=== PATIENT | male | born 1990 | race African-American/Black ===

== ENCOUNTER 2025-03-01 13:58 | Outpatient (REF) | payer OTHER, SELFPAY ==
--- NOTE | ~2025-03-01 | XR_ITS ---
CLINICAL HISTORY: M54.16 - Radiculopathy, lumbar region --- Additional Notes or Special Instructions: AP LAT FLEX EX 4 views lumbar spine Comparison: None Findings: Normal alignment. No acute fractures or dislocation. No significant degenerative change. IMPRESSION: No acute findings. This document has been electronically signed by: Alen Leonard MD on 03/03/2025 09:02:51
== END 2025-03-01 13:59 | disposition home or self-care (01) ==
LOC: HO.HOSX 13:58
PROVIDERS: Visit Provider Physician Assistant
DX: M54.16 Radiculopathy, lumbar region (principal)
CPT/HCPCS: 72110

== ENCOUNTER 2025-03-01 13:58 | Outpatient (AMB) | payer OTHER, SELFPAY ==
--- NOTE | 2025-03-01 14:01 | A.SPINEOV_ITS ---
Vital Signs 03/01/25 14:05 Height 6 ft 5 in Weight 265 lb BMI 31.4 Intake Visit Reasons: LBP/bilateral leg pain Intake Note: Mr. Craven is here today c/o Low back pain that radiates down to the legs. Steel Plate Printer Required: No Allergies No Known Allergies Allergy (Verified 03/01/25 14:06) Physical Exam Vital Signs: BMI result Body Mass Index 31.4 Assessment & Plan Assessment & Plan (1) Lumbar radiculopathy: Code(s): M54.16 - Radiculopathy, lumbar region Category: Medical Plan Triston is a pleasant 34-year-old male who comes in today as a self-referral for a low back pain and shooting pain into his bilateral lower extremities. He reports that this has been ongoing since about , and began again with no inciting incident. He states that he has experienced this exact pain before. About 9 years ago he underwent L4-5, L5-S1 lumbar decompression completed by Dr. Martinez at [facility] to address this exact pain. Fortunately, his pain was completely relieved after surgery, and until of 2024 he did not experience any return of pain. Unfortunately, since he has had severe exacerbation of this pain. When describing his pain he says his low back is just as bad as the shooting pain into his legs, and rates it as an 8/10 constant. The only way he is able to help mitigate his pain is if he lays flat on the ground, which provides good symptom relief. In any other position he has pain. His pain has significantly exacerbated when attempting to stand from a seated position. He reports no significant change in his pain level when ambulating. He reports some tingling associated with the pain into his bilateral lower extremities, but denies numbness or burning. When describing the pain that shoots down his leg he states that it feels like it goes down his entire leg on both sides. He was unable to pinpoint a dermatomal distribution in which his pain travels. He does state that it terminates around the bilateral ankles. He has attempted physical therapy since , and also had injections at L4-5, L5-S1 about 3 weeks ago and reports no symptom relief from the injections. He has attempted shet-gfo-uylorer medications including Tylenol, ibuprofen, and pain gel/creams. He also has attempted several different prescription medications including a course of prednisone, gabapentin, and cyclobenzaprine. PMH: L4-5, L5-S1 lumbar decompression completed in 2016. He denies any other past medical history or surgical history. Social hx: The patient does not smoke, reports no substance use. Medications: None currently. Allergies: NKDA. Physical exam: Amber has 5/5 strength in his upper and lower extremities. He ambulates well with a nonantalgic non spastic gait. He is able to get up onto the exam table without much issue. He has no significant sensational deficits on exam. His reflexes are 1+ hypoactive in the bilateral patella, but are 2+ intact elsewhere. (-) bilateral straight leg raise, (-) Kumar's, (-) clonus. Imaging review: MRI of the lumbar spine completed at [facility] in January of 2025 shows moderate-severe bilateral foraminal stenosis at L4-5, L5-S1 (worse at L5-S1). There is notable posterior disc bulge at both of these levels. Fairly significant endplate degeneration at S1 with Modic endplate changes, although the MRI imaging is rather difficult to interpret due to poor quality of the study. Impression: Triston is a pleasant 34-year-old male who comes in today with a chief complaint of low back pain and shooting pains into his bilateral lower extremities. He describes his pain as the exact same pain he had prior to his lumbar decompression surgery about 9 years ago. He did attempt to go and see the neurosurgeon who did his previous surgery, however he is booked for about 3 months out and wanted to have a opinion before then as he has in quite excruciating pain at this time. He most recently attempted a series of injections with Dr. Piedra at [facility], but reports no relief from these injections. He has exhausted all other reasonable conservative options at this time. It seems he could be a candidate for either lumbar decompression or lumbar fusion, but I will be more inclined to say lumbar fusion would be more appropriate given the significant endplate degeneration seen at S1. I would like to send the patient for a set of dynamic lumbar spine x-rays, and review this case with Dr. Pierson. I will call him with a surgical decision next week after reviewing his case and imaging. Thank you for allowing us to care for your patient. The total time spent with this visit with this patient was 45 minutes reviewing history, physical exam, MRI imaging review, and implementation of treatment plan or further diagnostic testing Kel Pierson MD,PhD [facility] Orders: Orders XR lumbar spine 4V min Today M54.16 - Radiculopathy, lumbar region Coding Level of Care Code New Pt Level 4 (94575) Diagnoses Lumbar radiculopathy M54.16
[2025-03-01 14:05] VITALS: BMI 31.4
--- OUTSIDE RECORDS SUMMARY | 2025-03-01 15:12 | XMS_ITS ---
Author Organization [facility] Address [address] [place] [id number] Care Team Providers Care Mud Plant Operator Name Role Phone NONE, NONE Primary Care Provider Santiago Rodriguez Unavailable [phone] REASON FOR VISIT sec. opinion-lower back Encounters Encounter Location Date Provider Diagnosis [facility] [address] [place] [phone] 02/22/2025 Santiago Rodriguez Plan Of Treatment Next Appt Details Provider Name:Santiago wylie, 03/13/2025 02:20:00 PM, [address], [address], [place], [phone], Progress Notes * Triston MIX DDOB:1990 (34 yo M)Acc No.[id number]:02/22/2025 Patient:?Triston MIX :1990???Age:34 Y???Sex:Male Address:[address] [place], [address] * * Date:?
--- OUTSIDE RECORDS SUMMARY | 2025-03-01 15:12 | XMS_ITS | Clinical Summary ---
Author Organization [facility] Address [address] [place] [address] Care Team Providers Care Legal Paraprofessional Name Role Phone Morris Lombardo DO Primary Care Provider [phone] Social History Tobacco Use Types Packs/Day Years Used Date Smoking Tobacco: Never Assessed Sex and Gender Information Value Date Recorded Sex Assigned at Male 02/15/2025 10:00 AM EDT Legal Sex Male 10:46 AM EDT Gender Identity Male 02/15/2025 10:00 AM EDT Sexual Orientation Not on file Plan of Treatment Upcoming Encounters Date Type Department Care Team (Late st Contact Info) Description 03/13/2025 8:00 AM EDT Office Visit [facility] [address] [place] [address] Aura Bergman, GRINDER TENDER [address] [place] [address] In Person with Nurse Practitioner Health Maintenance Due Date Last Done Comments Blood Pressure 1992 Depression Screening 1996 Hepatitis C Screening 2010 DTaP,Tdap,and Td Vaccines (1 - Tdap) 2011 COVID-19 Vaccine (2023-2 5 season) 2024 Influenza Vaccine (Season Ended) 2025 Meningococcal Vaccines Aged Out No lo nger eligible based on patient's age to complete this topic Pneumococcal Vaccine: Pediat rics (0 to 5 Years) and At-Risk Patients (6 to 64 Years) Aged Out No longer eligible b ased on patient's age to complete this topic Procedures Procedure Name Priority Date/Time Associated Diagnosis Comments MRI LUMBAR SPINE OUTSIDE STUDY 02/04/2025 3:54 PM EDT from Last 3 Months Results * MRI Lumbar Spine Outside Study (02/04/2025 3:54 PM EDT) Anatomical Region Laterality Modality Magnetic Resonan ce 02/07/2025 10:5 3 AM EDT Narrative 02/07/2025 10:53 AM EDT This is a non-reportable study used for image storage. It has been automatically finalized and does not contain a result. Procedure Note System, Provider Not In - 02/07/2025 This is a non-reportable study used for image storage. It has beenautomatically finalized and does not contain a result. us Provider Not In System IMG MRI ORDERABLES Final Result from Last 3 Months Insurance ([place]) [address] [place] [address] [facility] ([place]) 5 [facility] [place] [place] [address] [facility] Care Teams Legal Paraprofessional Relationship Specialty Start Date End Date Morris Lombardo DO [address] [facility] [place] [address] PCP - General Hospitalist 02/15/25
--- OUTSIDE RECORDS SUMMARY | 2025-03-01 15:12 | XMS_ITS | Patient Health Record ---
Author Organization [facility] Address [address] [place] [phone] Care Team Providers Care Switchbox Assembler Name Role Phone NONE, NONE Primary Care Provider Santiago Rodriguez Unavailable [phone] Reason For Referral No Information Encounters Encounter Location Date Provider Diagnosis [facility] [address] [place] [phone] 02/22/2025 Santiago Rodriguez Plan Of Treatment Next Appt Details Provider Name:Santiago wylie, 03/13/2025 02:20:00 PM, [address], [place], [phone], Insurance Providers Payer Name Payer Address Payer Phone Subscriber Number Group Number Insured Name Patient Relationship to Insured Coverage Start Date Coverage End Date [employer] [address] [address] [place] [address] [id number] Triston Craven Self - patient is the insured
== END 2025-03-01 14:31 | disposition home or self-care (01) ==
LOC: HO.HNS 13:59
PROVIDERS: Visit Provider Physician Assistant
DX: M54.16 Radiculopathy, lumbar region (principal)
CPT/HCPCS: 99204

== ENCOUNTER → 2025-03-01 14:35 | Outpatient (BNV) | payer OTHER, SELFPAY | PROVIDERS: Visit Provider Specialist | DX: M54.16 Radiculopathy, lumbar region (principal) | CPT/HCPCS: 72110 ==

== ENCOUNTER 2025-06-14 15:15 | Outpatient (AMB) | payer OTHER, SELFPAY ==
--- OUTSIDE RECORDS SUMMARY | 2025-03-31 11:30 | XMS_ITS ---
Author Organization [facility] Address [address] [place] [phone] Care Team Providers Care Horticulture/Floriculture Teacher Name Role Phone NONE, NONE Primary Care Provider Santiago Rodriguez Unavailable [phone] REASON FOR VISIT Sec. Op.-Patient has been seen at [facility]. Has had surgery 8-9 yrs ago- bulging disc (L4,L5,S1) /pinched nerve. MRI done at [facility] 02/06/25. Cortisone injection-last one was 2 weeks ago-no relief. search marketing specialist told him he will need a fusion done. He wants to know if this is the surgery that he needs., Low back pain, radiating (DOO: years 2011/2015?) Encounters Encounter Location Date Provider Diagnosis [facility] [address] [place] [phone] 03/31/2025 Santiago Rodriguez Plan Of Treatment No Information Procedure Notes * Category Sub-Category Detail Notes Physical Therapy Rx Modalities PRN Dx specific core strengthening Frequency 1-2 x week for 6-8 w eeks Duration 6-8 weeks Goals decrease inflammatio n, increase ROM, increase strength, proprioception training, Improve core strength Evaluate & Treat as directed by theralice madera Diagnosis Low back pain Timeframe at patient's conveni ence Progress Notes * Triston MIX DDOB:1990 (35 yo M)Acc No.[id number]:03/31/2025 New Patient Evaluation Patient: Triston LAWTON Henry Provider: ANN Hansen :1990 A ge:34 Y S ex:Male Date:03/31/2025 Address:[address], [id number] Subjective: * Chief Complaints: * 1 . Sec. Op.-Patient has been seen at [facility]. Has had surgery 8-9 yrs ago- bulging disc (L4,L5,S1) /pinched nerve. MRI done at [facility] 02/06/25. Cortisone injection-last one was 2 weeks ago-no relief. search marketing specialist told him he will need a fusion done. He wants to know if this is the surgery that he needs.. 2. Low back pain, radiating (DOO: years ?). * HPI: G eneral: Triston is a 34yo male who presents for second opinion of low back pain that has been ongoing for years. He complains of low back pain radiating down bilateral legs to bilateral ankles. He was recently seen at [facility]. A lumbar MRI was performed on 02/04/25. He has tried physical therapy, gabapentin, muscle relaxants, Nsaids, Tylenol and had lumbar injection performed at on 02/20/25?. His pain has continued. He was seen by [facility] on 03/13/25. Bilateral LE EMG's were ordered at that time. He was also prescribed Diclofenac and referred to Dr. Piedra (?) to discuss other possible treatment options. He was seen at [facility] back to 2016 for low back issues. * ROS: A bridged Review of Systems: Fever n o. C hills n o. H eadache n o. W eight loss n o. H earing loss n o. N osebleed n o. N ight cramps n o.?Vision changes n o. S hortness of breath n o. C ough n o. C hest pain?no. P alpitations n o. H eartburn n o. B ronchial asthma n o. A bdominal pain n o. R albert/hives n o. M jacinto loss n o. S eizures n o. R ecurrent UTI n o. H ematuria n o. D epression n o. N umbness n o. T ingling n o. h /o DVT n o. S troke/TIA n o. S leep apnea n o. ? * Medical History: * Surgical History: H dex-Laminectomy, L4-L5 . Objective: * Vitals: * Examination: I maging Studies: MRI: S daisha (Dion)-Lumbar MRI 02/04/25:Question diffuse bone marrow recruitment should be correlated with symptoms. L5-S1 mixed endplate irregularity and bone marrow changes can be associated with focal pain should be correlated clinically. No disc herniations, central or neuroforaminal stenosis *Neuro interpretation-MRI of the lumbar spine demonstrates a prior hemilaminectomy at L4 and L5 as well as degenerative disc disease at L4-5 and L5-S1. There is no significant canal stenosis or foraminal stenosis present. There is no subluxation present.. Assessment: Plan: * Treatment: * Procedures: P hysical Therapy Rx: Diagnosis L ow back pain. T imeframe a t patient's convenience. E valuate & Treat a s directed by therapist. Alejandro Bowles RN. D x specific c ore strengthening. F requency 1 -2 x week for 6-8 weeks. D uration 6-8 weeks. G oals d ecrease inflammation, increase ROM, increase strength, proprioception training, Improve core strength. * * Electronic signature of Marii Rodriguez PA-C on 06/14/2025 at 03:18 PM EDT Sign off status: Pending * Provider: ANN Hansen Date: 0 03/31/2025 Generated for Sawyeri jose/Annia/eTranparrishitting on: 0 06/14/2025 03:18 PM EDT History and Physical Notes * Examination Category Sub-Category Detail Notes Category Not es Imaging Studies MRI: Martin (Dion )-Lumbar MRI 02/04/25: Question diffuse bone marrow recruitment should be correlated with symptoms. L5-S1 mixed endplate irregularity and bone marrow changes can be associated with focal pain should be correlated clinically. No disc herniations, central or neuroforaminal stenosis *Neuro interpretation-MRI of the lumbar spine demonstrates a prior hemilaminectomy at L4 and L5 as well as degenerative disc disease at L4-5 and L5-S1. There is no significant canal stenosis or foraminal stenosis present. There is no subluxation present.
--- OUTSIDE RECORDS SUMMARY | 2025-06-14 15:18 | XMS_ITS | Encounter Summary ---
Author Organization [facility] Address [address] [place] [address] Phone Care Team Providers Care Cardroom Drawing Runner Name Role Phone Haley Steen MD, MPH Primary Care Provider [phone] Haley Steen MD, MPH Unavailable [phone] Annabelle Dc MD Unavailable [phone] Cherelle Momin MD Primary Care Provider Encounter Details Date Type Department Care Team (Late st Contact Info) Description 01/21/2016 Orders Only Orthopaedic Surgery [address] Director [facility] [phone] Cliff Thayer MD [address] [facility] [address] [place] [address] Spine pain, lumbar Social History Tobacco Use Types Packs/Day Years Used Date Smoking Tobacco: Never Comments:Smoking History:Nev er smoker Alcohol Use Standard Drinks/Week Comments No 0 (1 standard drink = 0.6 oz pur e alcohol) Sex and Gender Information Value Date Recorded Sex Assigned at Male 09/08/2023 11:00 AM EST Legal Sex Male 7:16 PM EDT Gender Identity Male 09/08/2023 11:00 AM EST Sexual Orientation Straight 05/22/2025 9: 45 AM EDT documented as of this encounter Plan of Treatment Upcoming Encounters Date Type Department Care Team (Late st Contact Info) Description 07/17/2025 8:15 AM EDT Office Visit Orthopaedic Surgery [address] Director Of [place] [address] Cliff Thayre MD [address] [facility] [address], [place] [address] documented as of this encounter Procedures Procedure Name Priority Date/Time Associated Diagnosis Comments XR LUMBAR SPINE AP LATERAL FLEXION AND EXTENSION Routine 01/21/2016 8:12 AM EDT Spine pain, lumbar documented in this encounter Results * X-Ray Lumbar Spine AP Lateral Flexion and Extension (01/21/2016 8:12 AM EDT) Anatomical Region Laterality Modality L-spine, T-spine, Abdomen, Pelvis Xray Auto Schedule 01/21/2016 8:12 AM EDT Narrative 01/21/2016 2:12 PM EDT EXAMINATION: LUMBAR SPINE WITH FLEXION AND EXTENSION VIEWS: HISTORY: PAIN COMPARISON: None listed. TECHNIQUE: Standing AP, lateral, cone-down lateral and flexion and extension views. FINDINGS/IMPRESSION: There is mild retrolisthesis of L3 on L4 and L4 on L5 which remains stable with flexion and extension. There is mild loss of disk space height at L5-S1. The vertebral body heights and remaining disk spaces are otherwise well maintained. There is no acute fracture. There are no paraspinal soft tissue masses seen. I personally reviewed the study and agree with the dictated report. Resulting Agency Comment Dictated By: ANGEL MISHRA M.D. Date: 01/21/2016 02:12 PM Electronically Signed By: ANGEL MISHRA M.D. Date: 01/21/2016 02:12 PM Procedure Note Angel Mishra MD - 01/21/2016 EXAMINATION: LUMBAR SPINE WITH FLEXION AND EXTENSION VIEWS: HISTORY: PAIN COMPARISON: None listed. TECHNIQUE: Standing AP, lateral, cone-down lateral and flexion and extension views. FINDINGS/IMPRESSION: There is mild retrolisthesis of L3 on L4 and L4 on L5 which remains stable with flexion and extension. There is mild loss of disk space height at L5-S1. The vertebral body heights and remaining disk spaces are otherwise well maintained. There is no acute fracture. There are no paraspinal soft tissue masses seen. I personally reviewed the study and agree with the dictated report. us Cliff Thayer MD IMG DIAGNOSTIC IMAGING ORDERAB LES Final Result documented in this encounter Visit Diagnoses Diagnosis Spine pain, lumbar documented in this encounter Care Teams Cardroom Drawing Runner Relationship Specialty Start Date End Date Haley Steen MD, [place] [address] PCP - General 02/23/14 08/14/21 Haley Ste[place], [place] [address] PCP - Insurance 01/01/16 01/05/18 [place] [address] PCP - Insurance 01/06/18 [place] [address] PCP - General Family Medicine 08/15/21 documented as of this encounter
--- OUTSIDE RECORDS SUMMARY | 2025-06-14 15:18 | XMS_ITS | Clinical Summary ---
Author Organization [facility] Address [address] [place] [address] Care Team Providers Care Merchandise Handler Name Role Phone Morris Lombardo DO Primary Care Provider [phone] Medications gabapentin (NEURONTIN) 300 MG capsule Take 1 capsule (300 mg total) by mouth 3 times a day. Active predniSONE 5 mg/mL Conc concentrated oral solution Take 1 mL (5 mg total) by mouth daily. Active cyclobenzaprine (FLEXERIL) 5 MG tablet Take 1 tablet (5 mg total) by mouth 3 times a day as needed for muscle spasms. Active diclofenac (VOLTAREN) 75 MG EC tablet Take 1 tablet (75 mg total) by mouth every morning & every evening. 60 tablet Active Active Problems No known active problems Social History Tobacco Use Types Packs/Day Years Used Date Smoking Tobacco: Never Assessed Sex and Gender Information Value Date Recorded Sex Assigned at Male 02/15/2025 10:00 AM EDT Legal Sex Male 10:46 AM EDT Gender Identity Male 02/15/2025 10:00 AM EDT Sexual Orientation Not on file Last Filed Vital Signs Vital Sign Reading Time Taken Comments Blood Pressure 140/89 03/13/2025 8:05 AM EDT REPAIRER KILN CAR notified Pulse 78 03/13/2025 8:05 AM EDT Temperature - - Respiratory Rate - - Oxygen Saturation 97% 03/13/2025 8:05 AM EDT Inhaled Oxygen Concentration - - Weight 120 kg (265 lb) 03/13/2025 8:05 AM EDT Height 193 cm (6' 4 ) 03/13/2025 8:05 AM EDT Body Mass Index 32.26 03/13/2025 8:05 AM EDT Plan of Treatment Health Maintenance Due Date Last Done Comments Depression Screening 1996 Hepatitis C Screening 2010 COVID-19 Vaccine (2023- season) 2024 Influenza Vaccine (#1) 2025 7, 01/08/2016, 09/18/2014, Additional history exists Blood Pressure 03/13/2026 03/13/2025 DTaP,Tdap,and Td Vaccines (10 - Td or Tdap) 04/01/2034 04/01/2024, 04/17/2011, 06/25/2007, Additional history exists Meningococcal Vaccines Completed 04/17/2011, 2006 Meningococcal B Vaccines Aged Out No longer eligible based on patient's age to complete this topic Pneumococcal Vaccine: Pediatrics (0 to 5 Years) and At-Risk Patients (6 to 64 Years) Aged Out No longer eligible based on patient's age to complete this topic Insurance [facility] Care Teams Merchandise Handler Relationship Specialty Start Date End Date Morris Lombardo DO [address] [facility] [place] [phone] PCP - General Hospitalist 02/15/25
--- NOTE | 2025-06-14 15:29 | HO.SPINEOV ---
Intake Visit Reasons: Review MRI possible surgical discussion Intake Note: Mr. Craven is here today to discuss the results of his MRI. Allergies No Known Allergies Allergy (Verified 03/01/25 14:06) Assessment & Plan Assessment & Plan (1) Degenerative disc disease (DDD) of lumbar region with discogenic back pain and leg pain: Code(s): M51.362 - Other intervertebral disc degeneration, lumbar region with discogenic back pain and lower extremity pain Category: Medical Plan Triston is a pleasant 35 year old male who comes in today for subsequent follow up to discuss surgery as intracept procedure was not approved as a treatment option for this patient by his insurance company. Therefore he wished to discuss the possibility of lumbar fusion once more, as he has severe low back and bilateral leg pain which he rates as 8/10 constant throughout the day. See previous office visit notes for specifics regarding this issue, and treatment/conservative options attempted. He reports that he was most recently evaluated by the surgeon who did his previous decompression surgeries, and was offered L4-5, L5-S1 lumbar fusion. He wished to come in today for a 2nd opinion to discuss what we believe is necessary to help address his pain. Dr. Pierson reviewed his images, and does not believe that the L4-5 segment needs to be addressed in order to have the patient obtain pain relief. He would prefer to only address the L5-S1 segment, especially given the patient's young age. After extensive review with the patient's images Dr. Pierson is willing to offer the patient a L5-S1 total disc arthroplasty. This would be ideal for preventing inevitable adjacent segment disease that would occur at some point during the life of this patient as a result of lumbar fusion at L5-S1. It would also stop any further degeneration at L4-5 as the artificial disc would articulate with a normal movements of his body. We will discuss this with our vascular approach surgeon Dr. Goldberg and submit for insurance approval thereafter. The patient was given risk and benefits of surgery including but not limited to infection, hematoma, nerve injury, durotomy, weakness, bowel/bladder injury, persistent pain. We also discussed the option to continue with conservative treatment and patient wishes to proceed with surgery. They are aware they should stop NSAIDs 7 days prior to surgery. All questions were answered to the best of our ability. If there is anything about this patients medical history that we have overlooked or concerns you have about us proceeding with surgery we would appreciate any input you can offer Kel Pierson MD,PhD [facility] Coding Level of Care Code Est Pt Level 3 (56661) Diagnoses Degenerative disc disease (DDD) of lumbar region with discogenic back pain and leg pain M51.362
== END 2025-06-14 16:05 | disposition home or self-care (01) ==
LOC: HO.HNS 15:15
PROVIDERS: Visit Provider Physician Assistant
DX: M51.362 Other intervertebral disc degeneration, lumbar region with discogenic back pain and lower extremity pain (principal)
CPT/HCPCS: 99213

== ENCOUNTER 2025-09-04 15:18 | Outpatient (AMB) | payer OTHER, SELFPAY ==
--- NOTE | 2025-09-04 14:59 | HO.SPINEOV ---
Intake Visit Reasons: Follow up leg pain. Intake Note: Mr. Craven is here today to F/u on leg pain. 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 Presents to clinic today to review some information, as his planned surgery (L5-S1 total disc arthroplasty) was denied by his insurance company. He has had 15 YTD visits to PT over the course of the past calendar year. He has been having worsening low back pain leading up to this point. Thankfully his leg pain has been resolved for about 45 days or so and he is now only complaining of severe axial low back pain. His surgery is scheduled for 09/26/25. We are being put a very unfortunately position as this is a 35 year old male who would very much so benefit from total disc arthroplasty vs. standard lumbar fusion, however his surgery has been denied only weeks before his operation date. I do not think we can postpone his surgery any longer given his continued disclosure of severe low back pain. If his insurance company continues to refuse to pay for treatment via total disc arthroplasty we may need to consider pivoting to standard minimally invasive lumbar fusion via L5-S1 ALIF. We will resubmit this information in the hopes the patient can have the surgery that he needs. Kel Pierson MD,PhD [facility] Coding Level of Care Code Est Pt Level 2 (97550) Diagnoses Degenerative disc disease, lumbar M51.36
--- OUTSIDE RECORDS SUMMARY | 2025-09-04 16:35 | XMS_ITS | Clinical Summary ---
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 Pulse 78 03/13/2025 8:05 AM EDT [...] C Screening 2010 COVID-19 Vaccine (2023- season) 2025 Influenza Vaccine (#1) 2025 , 01/08/2016, 09/18/2014, Additional history exists Blood Pressure 03/13/2026 03/13/2025 DTaP,Tdap,and Td Vaccines (10 - Td or Tdap) 04/01/2034 04/01/2024, 04/17/2011, 06/25/2007, Additional history exists Meningococcal Vaccines Completed 04/17/2011, 2006 Meningococcal B Vaccines Aged Out No longer eligible based on patient's age to complete this topic Pneumococcal Vaccine Aged Out No long er eligible based on patient's age to complete this topic Insurance ([place]) [address] [facility] [place] [address] [facility] ([place]) [address] [facility] [place] [address] [facility] Care Teams Film Laboratory Technician Relationship Specialty Start Date End Date Morris Lombardo DO [address] [facility] [place] [address] PCP - General Hospitalist 02/15/25
--- OUTSIDE RECORDS SUMMARY | 2025-09-04 16:35 | XMS_ITS | Clinical Summary ---
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 Name Role Phone Unavailable Primary Care Provider Unavailabl e Allergies No known active allergies Active Problems Problem Noted Date Diagnosed Date Other intervertebral disc de generation, lumbar region with axial back pain and referred sclerotomal pain 07/17/2025 Atherosclerosis of [place] of bilateral legs with rest pain 07/17/2025 Encounters Date Type Department Care Team Description 08/15/2025 9:00 AM EDT Office Visit [facility] [address] [place] [address] [place] [address] Germán Presley MD Other intervertebral disc degeneration, lumbar region with axial back pain and referred sclerotomal pain (Primary Dx) from Last 3 Months Social History Tobacco Use Types Packs/Day Years Used Date Smoking Tobacco: Never Assessed Sex and Gender Information Value Date Recorded Sex Assigned at Not on file Legal Sex Male 2:07 PM EDT Gender Identity Not on file Sexual Orientation Not on file Plan of Treatment Upcoming Encounters Date Type Department Care Team (Late st Contact Info) Description 09/26/2025 11:00 AM EST Scheduled Only [facility] [address] [place] [address] [place] [address] Germán Presley MD [address] [place] [phone] Health Maintenance Due Date Last Done Comments Influenza Vaccine (#1) 2025 7, 09/18/2014, 07/22/2013, Additional history exists Hepatitis B Vaccine Completed 12/12/1996, 04/12/1996, 07/21/1995, Additional history exists Pneumococcal Vaccine: Peds (0 to 5 Years) and At-Risk Patients (6 to 49 Years) Aged Out No longer eligi ble based on patient's age to complete this topic Insurance [facility]
== END 2025-09-04 15:44 | disposition home or self-care (01) ==
LOC: HO.HNS 15:18
PROVIDERS: PCP Internal Medicine Cardiovascular Disease; Visit Provider Physician Assistant
DX: M51.369 Other intervertebral disc degeneration, lumbar region without mention of lumbar back pain or lower extremity pain (principal)
CPT/HCPCS: 99212